=== PATIENT | male | born 1955 | race Caucasian/White ===

== ENCOUNTER 2023-01-12 12:47 | Outpatient (CLI) | payer OTHER | END 2023-01-12 12:57 | disposition home or self-care (01) | LOC: RAD 12:47 | PROVIDERS: ATTEND General Practice | DX: M25.511 Pain in right shoulder (principal) ==

== ENCOUNTER 2024-06-06 15:18 | Emergency (ER) | payer OTHER ==
[~2024-06-06] VITALS: Ht 172.7 cm; Wt 77.1 kg
[2024-06-06] MEDS ORDERED: TOPROL XL25 M1 PO (15:34)
[2024-06-06] MEDS ORDERED: DIGOXIN0.125 MG/2 PO (15:34)
[2024-06-06] MEDS ORDERED: ELIQUIS2.5 MG PO (15:34)
[2024-06-06] MEDS ORDERED: LIPITOR20 MG PO (15:34)
[2024-06-06] MEDS ORDERED: TRAMADOL HCL25 MG PO (15:35)
[2024-06-06] MEDS ORDERED: NIFEDIPINE 10 MG CAPSULE PO ONE (16:30)
[2024-06-06] MEDS ORDERED: 0.9 % SODIUM CHLORIDE 1,000 ML IV SCH (16:30)
[2024-06-06 16:57] LABS: URINE APPEARANCE Clear; URINE BILIRRUBIN Negative (NEGATIVE); URINE BLOOD Negative; URINE COLOR Yellow; URINE KETONE Negative (NEGATIVE); URINE LEUKOCYTE Negative; URINE NITRATE Negative; URINE PROTEIN Negative (NEGATIVE); URINE UROBILINOGEN 0.2 E.U./dl
[2024-06-06 16:58] LABS: URINE BACTERIA 8.8 uL (0.0-1933); URINE EPITHELIAL CELLS 2.3 uL (0.0-38.8); URINE WBC 2.9 uL (0.0-23.2)
[2024-06-06 17:00] LABS: ABG PO2 89.4 mmHg (80-100); ABG pCO2 40.8 mmHg (35-45); BASE EXCESS 0 mmol/l; BICARBONATE 24.7 mmol/l (23-25); SaO2 96.8 %
[2024-06-06 17:05] LABS: URINE GLUCOSE >=1000 MG/DL (NEGATIVE); URINE RBC 0.7 uL (0.0-20.8)
[2024-06-06 17:13] LABS: HEMATOCRIT 41.2 % (39.0-48.0); HEMOGLOBIN 14.3 g/dL (13-16.00); MEAN CELL VOLUME 86.9 fL (80.0-100.00); MEAN CORPUSCULAR HEMOGLOBIN 30.2 pg (27.00-32.0); MEAN CORPUSCULAR HGB CONC 34.7 g/dl (32.0-36.0); PLATELET COUNT 232 K/uL (150-450); RED BLOOD COUNT 4.73 M/uL (4.00-6.00); RED CELL DISTRIBUTION WIDTH 13.6 % (11.5-14.5)
[2024-06-06 17:16] LABS: allen test SATISFACTORY; o2 21 %; puncture site RADIAL LEFT
[2024-06-06 17:32] LABS: PARTIAL THROMBOPLASTIN TIME 26.5 SECONDS (22.0-34.0); PROTHROMBIN TIME 10.9 SECONDS (9.0-11.5)
[2024-06-06 17:37] LABS: ALBUMIN 4.2 gm/dL (3.4-5.0); BILIRUBIN TOTAL 0.33 mg/dL (0.3-1.2); CALCIUM 9.5 mg/dL (8.5-10.1); CREATININE SERUM 1.26 mg/dL (0.70-1.30); GFR 56.74; GLOBULINA 3.1 G/DL (2.4-3.5); POTASSIUM 4.11 mEq/L (3.5-5.1); TOTAL PROTEIN 7.3 gm/dL (6.4-8.2)
[2024-06-06 20:57] VITALS: BP 120/70; O2SAT 100
== END 2024-06-06 20:58 | disposition home or self-care (01) ==
LOC: ER 15:19
PROVIDERS: General Practice
DX: R53.81 Other malaise (principal); R07.89 Other chest pain; I10 Essential (primary) hypertension; E11.9 Type 2 diabetes mellitus without complications
CPT/HCPCS: 36415; 71045; 82803; 93005; 93041; 96365; 96366; 99283; J7030